=== PATIENT | female | born 1980 | race Caucasian/White ===

== ENCOUNTER 2018-12-10 17:54 | Emergency (ER) | payer MEDICAID, OTHER ==
[~2018-12-10] VITALS: Ht 160 cm; Wt 74.4 kg
[~2018-12-10 17:54] MED LIST: NAPR-985 PO; POLY17PO6 PO
[2018-12-10 18:01] VITALS: Ht 160 cm; Wt 74.4 kg
--- NOTE | 2018-12-10 19:47 | ERD ---
ER Documentation Chief Complaint Chief Complaint right flank pain today HPI This patient is a 38-year-old female with past medical history of fatty liver disease presents the emergency department complaining of right suprapubic pain and burning on urination which began today. She does report radiation of the pain to the right flank region. Symptoms are intermittent. Symptoms moderate in severity. She also admits to a few episodes of diarrhea which was nonbloody starting today. She denies any nausea, vomiting, right lower quadrant pain, anorexia, vaginal bleeding, vaginal discharge, or other symptoms at this time. ROS All systems reviewed and are negative except as per history of present illness. Medications Home Meds Active Scripts Polyethylene Glycol* (Miralax*) 17 Gm Powd.pack, 17 GM PO DAILY, #7 Prov:CHRISTY HIGGINS PA-C 12/10/18 Naproxen* (Naprosyn*) 500 Mg Tablet, 500 MG PO BID PRN for PAIN AND/OR INFLAMMATION, #30 TAB Prov:CHRISTY HIGGINS PA-C 12/10/18 Allergies Allergies: Coded Allergies: No Known Allergy (Unverified , 12/10/18) PMhx/Soc Medical and Surgical Hx: pt denies Medical Hx, pt denies Surgical Hx Hx Alcohol Use: No Hx Substance Use: No Hx Tobacco Use: No Smoking Status: Never smoker FmHx Family History: No diabetes Physical Exam Vitals Vital Signs Date Temp Pulse Resp B/P (MAP) Pulse Ox O2 O2 Flow FiO2 Time Delivery Rate 12/10/18 98.4 62 17 106/65 98 Room Air 22:24 (79) 12/10/18 98.6 63 18 104/63 100 Room Air 19:53 (77) 12/10/18 98.5 18 73 96/56 (69) 97 18:01 Physical Exam Const: No acute distress Head: Atraumatic Eyes: Normal Conjunctiva ENT: Normal External Ears, Nose and Mouth. Neck: Full range of motion. No meningismus. Resp: Clear to auscultation bilaterally Cardio: Regular rate and rhythm, no murmurs Abd: Soft, non tender, non distended. Normal bowel sounds. No McBurney's point tenderness. No rebound tenderness or guarding. There is tenderness palpation of the right suprapubic region. Back: No midline tenderness. Tenderness to the right flank region. Skin: No petechiae or rashes Ext: No cyanosis, or edema Neur: Awake and alert Psych: Normal Mood and Affect Result Diagram: 12/10/18201412/10/182014 Results 24 hrs Laboratory Tests Test 12/10/18 19:43 12/10/18 19:52 12/10/18 20:15 Urine Color YELLOW Urine Clarity CLOUDY Urine pH 9.0 Urine Specific [place] 1.019 Urine Ketones NEGATIVE mg/dL Urine Nitrite NEGATIVE mg/dL Urine Bilirubin NEGATIVE mg/dL Urine Urobilinogen NEGATIVE mg/dL Urine Leukocyte Esterase NEGATIVE Uvaldo/ul Urine Microscopic RBC 3 /HPF Urine Microscopic WBC 6 /HPF Urine Amorphous Crystals FEW /HPF Urine Bacteria FEW /HPF Urine Hemoglobin NEGATIVE mg/dL Urine Glucose NEGATIVE mg/dL Urine Total Protein NEGATIVE mg/dl Bedside Urine pH (LAB) 8.5 Bedside Urine Protein (LAB) Negative Bedside Urine Glucose (UA) Negative Bedside Urine Ketones (LAB) Negative Bedside Urine Blood Negative Bedside Urine Nitrite (LAB) Negative Bedside Urine Leukocyte Esterase Negative (L POC Beta HCG, Qualitative NEGATIVE White Blood Count 5.6 10^3/ul Red Blood Count 4.20 10^6/ul Hemoglobin 12.7 g/dl Hematocrit 36.8 % Mean Corpuscular Volume 87.6 fl Mean Corpuscular Hemoglobin 30.2 pg Mean Corpuscular 34.5 g/dl Hemoglobin Concent Red Cell Distribution Width 11.9 % Platelet Count 204 10^3/UL Mean Platelet Volume 9.1 fl Immature Granulocytes % 0.200 % Neutrophils % 50.6 % Lymphocytes % 37.5 % Monocytes % 8.7 % Eosinophils % 2.3 % Basophils % 0.7 % Nucleated Red Blood Cells % 0.0 /100WBC Immature Granulocytes # 0.010 10^3/ul Neutrophils # 2.8 10^3/ul Lymphocytes # 2.1 10^3/ul Monocytes # 0.5 10^3/ul Eosinophils # 0.1 10^3/ul Basophils # 0.0 10^3/ul Nucleated Red Blood Cells # 0.0 10^3/ul Prothrombin Time 12.4 Sec Prothrombin Time Ratio 1.0 INR International 0.91 Normalized Ratio Activated Partial Thromboplast 28.5 Sec Time Sodium Level 140 mmol/L Potassium Level 4.2 mmol/L Chloride Level 106 mmol/L Carbon Dioxide Level 27 mmol/L Anion Gap 7 Blood Urea Nitrogen 13 mg/dl Creatinine 0.68 mg/dl Est Glomerular Filtrat > 60 mL/min Rate mL/min Glucose Level 92 mg/dl Calcium Level 9.4 mg/dl Total Bilirubin 0.5 mg/dl Direct Bilirubin 0.00 mg/dl Indirect Bilirubin 0.5 mg/dl Aspartate Amino 33 IU/L Transf (AST/SGOT) Alanine 39 IU/L Aminotransferase (ALT/SGPT) Alkaline Phosphatase 62 IU/L Total Protein 7.1 g/dl Albumin 4.4 g/dl Globulin 2.70 g/dl Albumin/Globulin Ratio 1.62 Lipase 342 U/L Current Medications Medications Dose Sig/Lissette Start Time Status Last (Trade) Ordered Route PRN Stop Time Admin Dose Reason Admin Sodium 1,000 ml @ Q1H STAT 12/10/18 DC 12/10/18 Chloride 1,000 mls/hr IV 19:58 20:26 12/10/18 20:57 Ondansetron 4 mg ONCE STAT 12/10/18 DC 12/10/18 HCl (Zofran IV 19:58 20:32 Inj) 12/10/18 20:00 Ketorolac 15 mg ONCE STAT 12/10/18 DC 12/10/18 Tromethamine IV 19:58 20:32 (Toradol) 12/10/18 20:00 [place] [id number] Radiology Main Line: [phone] DIAGNOSTIC IMAGING REPORT Patient: RICHARD BEAR : 1980 Age: 38 Sex: F MR #: [id number] DOS: 12/10/181957 Ordering MD: CHRISTY HIGGINS PA-C Location: [facility] Room/Bed: PROCEDURE: CT Abdomen and pelvis without contrast. CLINICAL INDICATION: Abdominal pain. TECHNIQUE: CT scan of the abdomen and pelvis was performed on a multi- detector high-resolution CT scanner. Contiguous axial images were obtained from the lung bases to the ischial tuberosities without intravenous contrast. Coronal and sagittal reformatted images were also obtained. Images were reviewed on the PACS workstation. DICOM images are available. One or more of the following dose reduction techniques were used: - Automated exposure control. - Adjustment of the mA and/or kV according to patient size. - Use of iterative reconstruction technique. Exam CTD/vol = 12.13 mGy. Total exam DLP = 714.66 mGy-cm. COMPARISON: None. FINDINGS: Evaluation of the lung bases demonstrates minimal bibasilar atelectasis. Abdomen: The liver is normal in size and diffusely low in attenuation consistent with mild fatty infiltration. There is no focal mass or dilatation of the biliary tree. The gallbladder is not distended. The spleen, pancreas and bilateral adrenal glands are within normal limits. Bilateral kidneys are normal in size with no contour deforming mass identified. There is no radiopaque renal or ureteral calculus identified. There is no hydronephrosis or hydroureter. There is no retroperitoneal adenopathy. The abdominal aorta is of normal caliber. There is no abnormal bowel wall thickening or distension. There is no bowel obstruction or free air. A normal appendix is identified. There is no diverticulosis or diverticulitis. There is no ascites. Pelvis: The bladder is unremarkable. The uterus and adnexa are within normal limits. There is no significant pelvic adenopathy or free fluid. Evaluation of the osseous structures demonstrates no suspicious lytic or blastic lesion. IMPRESSION: No acute abnormality identified within the abdomen and pelvis. Mild fatty infiltration of the liver. .Edmund Artis MD, Date Time Electronically viewed and signed by .Edmund Artis MD, on 12/10/2018 21:38 .T/ CC: CHRISTY HIGGINS PA-C [phone] Procedures/MDM This is a pleasant 38-year-old female presenting to the emergency department complaining of dysuria, right suprapubic, and right flank pain. Patient did have right flank tenderness to palpation and negative urine and so therefore further work-up was obtained. Patient was administered IV Toradol for pain with improvement. CBC: no e/o of systemic infection or severe anemia CMP: no e/o severe acidosis, alkalosis, renal failure, diabetic ketoacidosis, liver disease Lipase: no e/o pancreatitis PT/INR: normal coagulation Urine: no e/o acute infection or hematuria Medical decision making: Patient symptoms are likely secondary to muscle spasm. No evidence to suggest acute surgical abdomen, sepsis, cholecystitis, pyelonephritis, bowel obstruction, appendicitis, or other emergencies. Patient's gastrointestinal symptoms have stabilized while in the department. No evidence of severe dehydration, sepsis, or surgical abdomen. Extensive discussion with family and patient that occult disease cannot be ruled out. 8 hour recheck for repeat abdominal exam is planned. Departure Diagnosis: Primary Impression: Flank pain Condition: Fair Patient Instructions: Flank Pain, Uncertain Cause CHRISTY HIGGINS PA-C Dec 10, 2018 19:47
[2018-12-10] MEDS ORDERED: SOD CHLORIDE 0.9% 1,000 ML IV STA (19:58)
[2018-12-10] MEDS ORDERED: ONDANSETRON 4 MG INJ IV STA (19:58)
[2018-12-10] MEDS ORDERED: KETOROLAC 15 MG INJ IV STA (19:58)
[2018-12-10 22:24] VITALS: BP 106/65; PULSE 62; RESP 17
== END 2018-12-10 22:24 | disposition home or self-care (01) ==
LOC: FTE 17:54
DX: R10.31 Right lower quadrant pain (principal)
CPT/HCPCS: 36415; 74176; 80053; 81001; 81025; 83690; 85025; 85610; 85730; 87086; 96374; 96375; J1885; J2405; J7030; Z7502; 81003